=== PATIENT | male | born 1965 ===

== ENCOUNTER → 2016-05-08 | Outpatient (CLI) | payer BC ==
--- NOTE | 2016-05-08 18:06 | DX ---
Three Views Left Foot Reason for Examination: Postoperative follow up; comparison April 07, 2016. Findings: Postoperative changes are again noted, with an osteotomy seen involving the anterolateral aspect of the left calcaneus. The hardware is intact, and alignment is stable. No complicating proc ess is seen. Additionally, postoperative changes are seen involving the head of the 2nd metatarsal a nd the proximal interphalangeal joint of the left 2nd toe. The cannulated screw traversing the proxi mal interphalangeal joint of the 2nd toe is in stable position as are the two screws in the head of t he 2nd metatarsal. A splint remains in position posteriorly. Impression: Stable postoperative findings, with intact hardware, as detailed above.
== END ==
LOC: BMCIMAGING 14:30
PROVIDERS: ATTEND Podiatrist Foot & Ankle Surgery
DX: Z09 Encounter for follow-up examination after completed treatment for conditions other than malignant neoplasm (principal); Z98.890 Other specified postprocedural states

== ENCOUNTER → 2016-06-05 | Outpatient (CLI) | payer BC ==
--- NOTE | 2016-06-05 14:23 | DX ---
Left foot, 3 views. History: WBAT. S/P FLAT FOOT RECONSTRUCTION Comparison examination: May 08, 2016 Findings: Postsurgical changes are again identified. There are 2 small screws bridging the second me tatarsal head, with decrease density of the second metatarsal head potentially related to disuse. A s deedee arthrodesis screw bridges the PIP joint of the second toe without hardware complication. A late ral sideplate is also identified along the anterior lateral aspect of the calcaneus, unchanged. Focal erosion of the lateral aspect of the first metatarsal head is present. Impression: Stable postsurgical left foot radiographs.
== END ==
LOC: BMCIMAGING 13:41
PROVIDERS: ATTEND Podiatrist Foot & Ankle Surgery
DX: Z09 Encounter for follow-up examination after completed treatment for conditions other than malignant neoplasm (principal); Z98.890 Other specified postprocedural states; Z98.1 Arthrodesis status

== ENCOUNTER → 2016-06-26 | Outpatient (CLI) | payer BC | LOC: BMCIMAGING 14:19 | PROVIDERS: ATTEND Podiatrist Foot & Ankle Surgery | DX: Z09 Encounter for follow-up examination after completed treatment for conditions other than malignant neoplasm (principal) ==

== ENCOUNTER → 2017-02-24 | Outpatient (CLI) | payer BC | LOC: BMCIMAGING 10:13 | PROVIDERS: ATTEND Podiatrist Foot & Ankle Surgery | DX: Z47.89 Encounter for other orthopedic aftercare (principal); Z98.890 Other specified postprocedural states ==

== ENCOUNTER → 2017-03-26 | Outpatient (CLI) | payer BC | LOC: BMCIMAGING 14:46 | PROVIDERS: ATTEND Podiatrist Foot & Ankle Surgery | DX: Z47.89 Encounter for other orthopedic aftercare (principal); Z98.890 Other specified postprocedural states ==